=== PATIENT | male | born 1995 ===

== ENCOUNTER 2023-05-02 16:32 | Outpatient (REF) | payer OTHER, SELFPAY ==
[2023-05-02 22:14] LABS: ALT 57 U/L (16-63); AST 24 U/L (15-37); Albumin 4.5 g/dL (3.4-5.0); Alkaline Phosphatase 72 U/L (46-116); Bilirubin, Direct 0.2 mg/dL (0.0-0.2); Bilirubin, Total 1.4 mg/dL (0.2-1.0); Total Protein 8.2 g/dL (6.4-8.2)
[2023-05-02 22:46] LABS: Calculated LDL 101 mg/dL (<100); Cholesterol 208 mg/dL (<200); HDL Cholesterol 31 mg/dL (40-60); Triglyceride 382 mg/dL (<150)
== END 2023-05-02 16:33 | disposition home or self-care (01) ==
LOC: NCHCN 16:32
PROVIDERS: Visit Provider Family Medicine
DX: F10.20 Alcohol dependence, uncomplicated (principal); F32.89 Other specified depressive episodes; F51.04 Psychophysiologic insomnia; E66.9 Obesity, unspecified; Z87.891 Personal history of nicotine dependence
CPT/HCPCS: 80061; 80076

== ENCOUNTER 2025-03-09 18:01 | Outpatient (REF) | payer OTHER, SELFPAY ==
[2025-03-09 21:25] LABS: ALT 79 U/L (16-63); AST 42 U/L (15-37); Albumin 4.0 g/dL (3.4-5.0); Alkaline Phosphatase 83 U/L (46-116); Anion Gap 9.4 mmol/L (3-11); BUN 11 mg/dL (7-18); Bilirubin, Total 0.9 mg/dL (0.2-1.0); CO2 25.6 mmol/L (21.0-32.0); Calcium 8.8 mg/dL (8.5-10.1); Chloride 103 mmol/L (98-107); Cholesterol 190 mg/dL (<200); Estimated GFR 122.10 (mL/min/1.73m2); Glucose 153 mg/dL (74-106); HDL Cholesterol 27 mg/dL (>or=40); Potassium 3.8 mmol/L (3.5-5.1); Sodium 138 mmol/L (136-145); TSH (W/Ref FT4) 0.95 uIU/mL (0.36-3.74); Total Protein 7.7 g/dL (6.4-8.2); Triglyceride 439 mg/dL (<150)
[2025-03-09 21:37] LABS: LDL CHOLESTEROL 108 mg/dL (<100)
== END 2025-03-09 18:02 | disposition home or self-care (01) ==
LOC: NCHCN 18:01
PROVIDERS: Visit Provider Family Medicine
DX: E78.5 Hyperlipidemia, unspecified (principal); R10.11 Right upper quadrant pain; R63.5 Abnormal weight gain
CPT/HCPCS: 80053; 80061; 83721; 84443